=== PATIENT | female | born 1990 | race Caucasian/White ===

== ENCOUNTER 2016-06-11 14:05 | Emergency (ER) | payer BC ==
[2016-06-11 14:27] VITALS: BP 136/81
--- NOTE | 2016-06-11 15:06 | UC ---
Respiratory Complaint HPI - History of Current Complaint Chief Complaint: UCGeneralIllness Stated Complaint: SINUS PRESSURE Time Seen by Provider: 06/11/16 15:00 Hx Obtained From: Patient Hx Last Menstrual Period: 06/04/16 Onset/Duration: Sudden Onset, Lasting Days - 6, Still Present Severity Initially: Moderate Severity Currently: Moderate Character: Cough: Productive Aggravating Factors: Deep Breaths Alleviating Factors: OTC Meds Associated Signs And Symptoms: Positive: Wheezing, Nasal Congestion, Hoarseness , Sinus Discomfort Related History: Seasonal Allergies - Risk Factors Pulmonary Embolism Risk Factors: Oral Contraceptives Cardiac Risk Factors: Negative Pseudomonas Risk Factors: Negative - Allergies/Home Medications Allergies/Adverse Reactions: Allergies Allergy/AdvReac Type Severity Reaction Status Date / Time Erythromycin [From Pediazole] Allergy Unknown Verified 06/11/16 14:27 Reaction Details Sulfisoxazole Allergy Unknown Verified 06/11/16 14:27 [From Pediazole] Reaction Details Home Medications: Home Medications GuaiFENesin DM* [Robitussin DM*] 5 ml PO Q6H PRN 06/11/16 [History Confirmed 01/18] PMH/Surg Hx/FS Hx/Imm Hx Endocrine History Of: Denies: Diabetes, Thyroid Disease, Hyperthyroidism, Hypothyroidism, Dyslipidemia Cardiovascular History Of: Denies: Cardiac Disorders, Hypertension, Pacemaker/ICD, Myocardial Infarction , Congestive Heart Failure, Atrial Fibrillation, Deep Vein Thrombosis, Bleeding Disorders Respiratory History Of: Denies: COPD, Asthma, Bronchitis, Pneumonia, Pulmonary Embolism GI/ History Of: Denies: Gastroesophageal Reflux, Ulcer, Gastrointestinal Bleed, Gall Bladder Disease, Kidney Stones, Diverticulitis, Renal Disease, Urosepsis Neurological History Of: Denies: TIA, CVA, Dementia, Seizures, Migraine Psychological History Of: Denies: Anxiety, Depression, Bipolar Disorder, Schizophrenia, Post Traumatic Stress Disorder Cancer History Of: Denies: Lung Cancer, Colorectal Cancer, Breast Cancer, Prostate Cancer, Cervical Cancer Other History Of: Negative For: HIV, Hepatitis B, Hepatitis C - Surgical History Surgical History: Yes Surgery Procedure, Year, and Place: [place] Teeth, ~2010 - Family History Known Family History: Positive: Hypertension - Social History 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 Lives: With Family - with fiance Alcohol Use: Occasionally Substance Use Type: None Smoking Status (MU): Never Smoked Tobacco Have You Smoked in the Last Year: No Review of Systems Respiratory: Shortness Of Breath, Cough Neurological: Headache - frontal sinus headache All Other Systems Reviewed And Are Negative: Yes Physical Exam Triage Information Reviewed: Yes Appearance: No Pain Distress, Well-Nourished, Ill-Appearing Vital Signs: Initial Vital Signs Temp 99.4 F 06/11/16 14:23 Pulse 81 06/11/16 14:23 Resp 16 06/11/16 14:23 BP 136/81 06/11/16 14:23 Pulse Ox 100 06/11/16 14:23 Vital Signs Reviewed: Yes Eyes: Positive: Conjunctiva Clear ENT: Positive: Pharynx normal, Nasal congestion, TMs normal Neck exam: Normal Neck: Positive: No Lymphadenopathy Respiratory: Positive: Lungs clear, Wheezing - expiratory with coughing. Cardiovascular Exam: Normal Musculoskeletal Exam: Normal Neurological Exam: Normal Psychological Exam: Normal Skin Exam: Normal UC Diagnostic Evaluation - Laboratory O2 Sat by Pulse Oximetry: 100 Respiratory Course/Dx - Differential Dx/Diagnosis Differential Diagnosis/HQI/PQRI: Asthma, Lower Resp Infection, Sinusitis Provider Diagnoses: Acute URI. Acute sinusitis. Acute bronchospasm Discharge - Discharge Plan Condition: Stable Disposition: HOME Prescriptions: Amoxicillin (*) 875 mg PO BID #20 tab predniSONE TAB* [Deltasone TAB*] 20 mg PO DAILY #18 tab Patient Education Materials: Upper Respiratory Infection (ED), Sinusitis (ED), Amoxicillin (By mouth), Bronchospasm (ED), Prednisone (By mouth)
== END 2016-06-11 15:29 | disposition home or self-care (01) ==
LOC: UCCORT 14:05
DX: J06.9 Acute upper respiratory infection, unspecified (principal); J98.01 Acute bronchospasm; Z88.3 Allergy status to other anti-infective agents; Z88.8 Allergy status to other drugs, medicaments and biological substances
CPT/HCPCS: 99212; G0463

== ENCOUNTER 2018-03-03 13:26 | Emergency (ER) | payer BC ==
--- OUTSIDE RECORDS SUMMARY | 2018-03-03 13:47 | XMS REPORT ---
:1990 External Reference #:[id number] Author Organization [facility] Address [address], [address] [place] [address] Phone [phone] Care Team Providers Name Role Phone Cathy Dougherty M.D. Care Team Information Maintenance Chief Unavailable Cathy Dougherty M.D. Primary Care Physician Unavailable Payers Type Date Identification Numbers Payment Provider Subscriber Commercial Policy Number: [id number] Robert Zavala PayID: [id number] [address] [address] [place] [address] Problems Date Description Provider Status Onset: 07/11/2011 No current problems or disability Active Onset: 08/22/2017 Acute stress disorder Cathy Dougherty M.D. Active Onset: 08/22/2017 Viremia Cathy Dougherty M.D. Active Onset: 08/02/2017 Lipoma of skin Cathy Dougherty M.D. Active Onset: 08/02/2017 Onychomycosis Cathy Dougherty M.D. 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 Cigarette Use Never Smoked Cigarettes ETOH Use Rarely consumes alcohol Smoking Patient denies history of smoking Daily Caffeine Patient consumes minimal amounts of caffeine Allergies, Adverse Reactions, Alerts Date Description Reaction Status Severity Comments 06/07/2010 Pediazole as Child, Unsure Reaction active Medications Medication Date Status Form Strength Qnty SIG Indications Ordering Provider Sertraline HCL Active Tablets 50mg 30tabs 1 by F33.0 Gino Jon mouth Annette, every PNP-BC, day CARPET CLEANER, Ibclc Buspirone HCL Active Tablets 15mg 60tabs Take One F41.9 Gino Dougherty Tablet Cathy, By Mouth M.D. Twice A Day Ibuprofen Active Capsules 200mg tamikan Mady Dutton MD Sertraline HCL Hx Tablets 25mg 30tabs 1 by F33.0 Gino Dougherty - mouth Cathy, every M.D. 018 day Buspirone HCL Hx Tablets 7.5mg 60tabs 1 tab by F41.9 [place] 018 - mouth Cathy, twice a M.D. 018 day Venlafaxine Hx Caps ER 37.5mg 30caps 1 by F41.9 [place], HCL ER 018 - 24HR mouth Cathy, every M.D. 018 day Buspirone HCL Hx Tablets 7.5mg 60tabs 1 tab by F41.9 [place], 018 - mouth Cathy, twice a M.D. 018 day Trinessa (28) Hx Tablets 0.18/0.215 28tabs Take One Ladonna 018 - /0.25 Tablet Cathy, mg-35 mcg By Mouth M.D. 018 Every Day Terbinafine Hx Tablets 250mg 30tabs 1 by B35.1 [place], HCL 017 - mouth Cathy, every M.D. 018 day Tri-Sprintec Hx Tablets 0.18/0.215 28tabs 1 by Lad[place], 014 - /0.25 mouth Cathy, mg-35 mcg every M.D. 018 day Amoxicillin 00/00/0 Hx Tablets 875mg 1 tab by Unknown 000 - mouth twice a 015 day Immunizations CPT Code Status Date Vaccine Lot # [id number] Given 07/25/2010 Tdap injection 28828 Given 02/26/2008 Gardasil 27402 Given 10/09/2007 Gardasil 84903 Given 08/11/2007 Meningococcal Vaccine (Any Groups) For Subcutaneous Use 50864 Given 08/11/2007 Gardasil 40665 Given 12/07/1995 MMR Vaccine, Live, For Subcutaneous Use 65679 Given 05/24/1992 MMR Vaccine, Live, For Subcutaneous Use Vital Signs Date Vital Result Comment 02/07/2018 BP Systolic Sitting Left Arm 120 mmHg BP Diastolic Sitting Left Arm 74 mmHg Height 70.8 inches 5'10.80" Weight 178.38 lb BMI (Body Mass Index) 25.0 kg/m2 BSA (Body Surface Area) 2.00 m2 [place] body weight in kilograms 70 12/26/2017 BP Systolic Sitting Left Arm 120 mmHg BP Diastolic Sitting Left Arm 70 mmHg Body Temperature 98.7 F Heart Rate 74 /min Height 71 inches 5'11" Weight 183.38 lb BMI (Body Mass Index) 25.6 kg/m2 BSA (Body Surface Area) 2.03 m2 [place] body weight in kilograms 70 10/30/2017 BP Systolic Sitting Left Arm 120 mmHg BP Diastolic Sitting Left Arm 82 mmHg Heart Rate 96 /min Height 70 inches 5'10" Weight 184.25 lb BMI (Body Mass Index) 26.4 kg/m2 BSA (Body Surface Area) 2.02 m2 [place] body weight in kilograms 68 09/26/2017 BP Systolic Sitting Left Arm 118 mmHg BP Diastolic Sitting Left Arm 74 mmHg Heart Rate 84 /min Respiratory Rate 18 /min Height 70 inches 5'10" Weight 185.38 lb BMI (Body Mass Index) 26.6 kg/m2 BSA (Body Surface Area) 2.02 m2 [place] body weight in kilograms 68 08/22/2017 BP Systolic Sitting Left Arm 136 mmHg BP Diastolic Sitting Left Arm 80 mmHg Body Temperature 99.9 F Height 70 inches 5'10" Weight 185.50 lb BMI (Body Mass Index) 26.6 kg/m2 BSA (Body Surface Area) 2.02 m2 [place] body weight in kilograms 68 08/02/2017 BP Systolic Sitting Left Arm 106 mmHg BP Diastolic Sitting Left Arm 62 mmHg Height 70 inches 5'10" Weight 188.12 lb BMI (Body Mass Index) 27.0 kg/m2 BSA (Body Surface Area) 2.03 m2 [place] body weight in kilograms 68 06/01/2017 BP Systolic 114 mmHg BP Diastolic 72 mmHg Body Temperature 98.0 F Heart Rate 93 /min Height 69.5 inches 5'9.50" Weight 189.00 lb BMI (Body Mass Index) 27.5 kg/m2 BSA (Body Surface Area) 2.03 m2 [place] body weight in kilograms 67 O2 % BldC Oximetry 99 % 05/02/2017 BP Systolic Sitting Left Arm 124 mmHg BP Diastolic Sitting Left Arm 72 mmHg Height 69.5 inches 5'9.50" Weight 187.00 lb BMI (Body Mass Index) 27.2 kg/m2 BSA (Body Surface Area) 2.02 m2 [place] body weight in kilograms 67 Last Menstrual Period [id number] 08/10/2016 BP Systolic 112 mmHg BP Diastolic 70 mmHg Weight 183.00 lb 06/23/2014 BP Systolic 130 mmHg BP Diastolic 80 mmHg Heart Rate 76 /min Respiratory Rate 18 /min Height 69.5 inches Weight 153.00 lb BMI (Body Mass Index) 22.3 kg/m2 Results Test Date Test Result H/L Range Note Laboratory test finding 09/29/2017 CK 122 U/L 26-192 1 Troponin-I < 0.015 ng/mL 1, 2 Thyroid Stim Hormone 3.01 uIU/mL 0.30-4.20 1 HCG,Serum (Qualitative) NEGATIVE (Negative) 1, 3 CBS W/Automated Diff 09/29/2017 White Blood Count 9.9 K/uL 3.1-10.7 1 Red Blood Count 5.14 M/uL 3.90-5.40 1 Hemoglobin 15.3 gm/dL 11.6-15.8 1 Hematocrit 43.9 % 36.0-46.1 1 Mean Cell Volume 85.4 fl 80.9-99.0 1 Mean Corpuscular HGB 29.8 pg 25.9-32.7 1 Mean Corpuscular HGB Conc 34.9 g/dL High 30.8-34.3 1 Platelet Count 344 K/uL 155-360 1 Red Cell Distri Width SD 37.6 fl 3-47 1 Red Cell Distri Width %CV 12.3 % 11.7-14.4 1 Mean Platelet Volume 9.3 fL 8.9-12.4 1 Neut% 71.1 % 40.4-72.8 1 Lymph % 20.7 % 20.0-42.0 1 [place] % 7.8 % 4.3-13.2 1 Eo% 0.1 % 0.0-6.6 1 Bas% 0.3 % 0.0-1.1 1 Neut# 7.00 K/uL 1.8-7.0 1 Lymph # 2.04 K/uL 1.0-4.0 1 Hettinger # 0.77 K/uL 0.3-0.9 1 Eos # 0.01 K/uL 0.0-0.5 1 Baso # 0.03 K/uL 0.0-0.1 1 Comprehensive Metabolic Panel 09/29/2017 Glucose 96 mg/dL 74-106 1 BUN 9 mg/dL 7-18 1 Creatinine 1.0 mg/dL 0.6-1.3 1 Glom Filtration Rate, Estimate >60 mL/min >60 1 If >60 mL/min >60 1, 4 BUN/Creat 9.0 ratio 1 Sodium 138 mmol/L 136-145 1 Potassium 3.8 mmol/L 3.5-5.1 1 Chloride 104 mmol/L 98-107 1 Carbon Dioxide 25 mmol/L 21-32 1 Anion Gap 9 mEq/L 8-16 1 Calcium 9.3 mg/dL 8.5-10.1 1 Total Protein 8.4 g/dL High 6.4-8.2 1 Albumin 4.3 g/dL 3.4-5.0 1 Globulin 4.1 g/dL 1.9-4.3 1 Alb/Glob 1.0 ratio 1 Bilirubin,Total 0.4 mg/dL 0.2-1.0 1 Sgot/Ast 17 U/L 15-37 1 SGPT/Alt 30 U/L 12-78 1 Alkaline Phosphatase 79 U/L 45-117 1 Drugs Of Abuse-Urine Screen 7 09/29/2017 Amphetamines (Urine) Negative 1 Barbiturates (Urine) Negative 1 Benzodiazepines (Urine) Negative 1 Cannabinoids (Urine) Negative 1 Cocaine Metabolite (Urine) Negative 1 Methadone (Urine) Negative 1 Opiates (Urine) Negative 1 Urine Cutoffs * 1, 5 Basic Metabolic Panel 06/09/2017 Glucose 84 mg/dL 74-106 6 BUN 13 mg/dL 7-18 6 Creatinine 0.9 mg/dL 0.6-1.3 6 Glom Filtration Rate, Estimate >60 mL/min >60 6 If >60 mL/min >60 6, 7 BUN/Creat 14.4 ratio 6 Sodium 139 mmol/L 136-145 6 Potassium 3.9 mmol/L 3.5-5.1 6 Chloride 104 mmol/L 98-107 6 Carbon Dioxide 28 mmol/L 21-32 6 Anion Gap 7 mEq/L Low 8-16 6 Calcium 9.0 mg/dL 8.5-10.1 6 Laboratory test finding 06/09/2017 Insulin Antibodies < 5.0 uU/mL . 6, 8 Insulin 8.1 uIU/mL 2.6-24.9 6 Beta Hydroxybutyrate 0.9 mg/dL . 6, 9 Laboratory test finding 06/09/2017 C-Peptide 1.7 ng/mL 1.1-4.4 6, 10 Proinsulin 06/09/2017 Proinsulin 1.9 pmol/L 0.0-10.0 6, 11 Basic Metabolic Panel 06/01/2017 Glucose 81 mg/dL 74-106 12 BUN 13 mg/dL 7-18 12 Creatinine 0.9 mg/dL 0.6-1.3 12 Glom Filtration Rate, Estimate >60 mL/min >60 12 If >60 mL/min >60 12, 13 BUN/Creat 14.4 ratio 12 Sodium 140 mmol/L 136-145 12 Potassium 3.4 mmol/L Low 3.5-5.1 12 Chloride 107 mmol/L 98-107 12 Carbon Dioxide 28 mmol/L 21-32 12 Anion Gap 5 mEq/L Low 8-16 12 Calcium 9.1 mg/dL 8.5-10.1 12 Reflex add FT3? Y 12 Reflex add FT4? Y 12 Laboratory test finding 06/01/2017 C-Peptide 6.4 ng/mL High 1.1-4.4 12, 14 Insulin 36.7 uIU/mL High 2.6-24.9 12, 15 TSH Reflex FT4 And/Or FT3 06/01/2017 Thyroid Stim Hormone 2.32 uIU/mL 0.30-4.20 12 Reflex add FT3? Y 12 Reflex add FT4? Y 12 Proinsulin 06/01/2017 Proinsulin 6.7 pmol/L 0.0-10.0 12 Affirm Vaginitis Panel 05/02/2017 Trichomonas vaginalis Negative [ Negative] 16 Gardnerella vaginalis Negative [Negative] 16 Corinna species Negative [Negative] 16, 17 CBS W/Automated Diff 05/02/2017 White Blood Count 7.6 K/uL 3.1-10.7 16 Red Blood Count 4.41 M/uL 3.90-5.40 16 Hemoglobin 13.3 gm/dL 11.6-15.8 16 Hematocrit 38.8 % 36.0-46.1 16 Mean Cell Volume 88.0 fl 80.9-99.0 16 Mean Corpuscular HGB 30.2 pg 25.9-32.7 16 Mean Corpuscular HGB Conc 34.3 g/dL 30.8-34.3 16 Platelet Count 301 K/uL 150-400 16 Red Cell Distri Width SD 39.4 fl 3-47 16 Red Cell Distri Width %CV 12.6 % 11.7-14.4 16 Mean Platelet Volume 10.4 fL 8.9-12.4 16 Neut% 44.2 % 40.4-72.8 16 Lymph % 41.6 % 20.0-42.0 16 Hettinger % 11.3 % 4.3-13.2 16 Eo% 2.5 % 0.0-6.6 16 Bas% 0.4 % 0.0-1.1 16 Neut# 3.35 K/uL 1.8-7.0 16 Lymph # 3.16 K/uL 1.0-4.0 16 Hettinger # 0.86 K/uL 0.3-0.9 16 Eos # 0.19 K/uL 0.0-0.5 16 Baso # 0.03 K/uL 0.0-0.1 16 HPV High Risk 05/02/2017 HPV High Risk Results on file 18 Comprehensive Metabolic 05/02/2017 Glucose 68 mg/dL Low 74-106 16 Panel BUN 13 mg/dL 7-18 16 Creatinine 0.8 mg/dL 0.6-1.3 16 Glom Filtration Rate, Estimate >60 mL/min >60 16 If >60 mL/min >60 16, 19 BUN/Creat 16.2 ratio 16 Sodium 139 mmol/L 136-145 16 Potassium 4.0 mmol/L 3.5-5.1 16 Chloride 105 mmol/L 98-107 16 Carbon Dioxide 28 mmol/L 21-32 16 Anion Gap 6 mEq/L Low 8-16 16 Calcium 9.1 mg/dL 8.5-10.1 16 Total Protein 7.5 g/dL 6.4-8.2 16 Albumin 3.5 g/dL 3.4-5.0 16 Globulin 4.0 g/dL 1.9-4.3 16 Alb/Glob 0.9 ratio 16 Bilirubin,Total 0.1 mg/dL Low 0.2-1.0 16 Sgot/Ast 18 U/L 15-37 16 SGPT/Alt 21 U/L 12-78 16 Alkaline Phosphatase 55 U/L 45-117 16 CBC W/Automated Diff 07/20/2015 White Blood Count 5.5 K/uL 3.1-10.7 Red Blood Count 4.49 M/uL 3.90-5.40 Hemoglobin 13.4 gm/dL 11.6-15.8 Hematocrit 39.5 % 36.0-46.1 Mean Cell Volume 88.0 fl 80.9-99.0 Mean Corpuscular HGB 29.8 pg 25.9-32.7 Mean Corpuscular HGB Conc 33.9 g/dL 30.8-34.3 Platelet Count 300 K/uL 155-360 Red Cell Distri Width SD 38.7 fl 3-47 Red Cell Distri Width %CV 12.4 % 11.7-14.4 Mean Platelet Volume 10.5 fL 8.9-12.4 Neut% 51.2 % 40.4-72.8 Lymph % 35.0 % 17.0-46.1 Hettinger % 11.9 % 4.3-13.2 Eo% 1.5 % 0.0-6.6 Bas% 0.4 % 0.0-1.1 Neut# 2.81 K/uL 1.8-7.0 Lymph # 1.92 K/uL 1.8-7.0 Hettinger # 0.65 K/uL 0.3-0.9 Eos # 0.08 K/uL 0.0-0.5 Baso # 0.02 K/uL 0.0-0.1 Xray 02/04/2015 Ultrasound, Extremity Non no bx rec'd Vascular Complete Laboratory test finding 12/17/2013 GC / Chlamydia neg neg Laboratory test finding 10/30/2012 Cytology Pap ok GC / Chlamydia neg neg 1 REACTION TO NEW MED 2 0.0 - 0.045 ng/mL: Normal 0.046 - 0.5 ng/mL: Suggestive 0.6 - 1.5 ng/mL: Consistent 3 Method: Care Team [employer] One-Step Immunoassay 4 Note: Persistent reduction for 3 months or more in an eGFR <60 mL/min/1.73 m2 defines CKD. Patients with eGFR values >/=60 mL/min/1.73 m2 may also have CKD if evidence of persistent proteinuria is present. The original MDRD equation for estimated GFR is not valid for patients less than 18 years of age. Additional information may be found at www.kdoqi.org. 5 URINE SPECIMENS ARE SCREENED AT THE LISTED CUTOFFS DRUG CLASS INITIAL TEST LEVEL Amphetamines 1000 ng/mL Barbiturates 200 ng/mL Benzodiazepines 200 ng/mL Cannabinoids 50 ng/mL Cocaine Metabolite 300 ng/mL Methadone 300 ng/mL Opiates 300 ng/mL Any PRESUMPTIVE POSITIVE findings are UNCONFIRMED. Confirmatory testing is suggested if findings are unexpected. Please contact laboratory if confirmatory testing is desired. SPECIMENS ARE HELD FOR 72 HOURS. 6 NO ORDER 7 Note: Persistent reduction for 3 months or more in an eGFR <60 mL/min/1.73 m2 defines CKD. Patients with eGFR values >/=60 mL/min/1.73 m2 may also have CKD if evidence of persistent proteinuria is present. The original MDRD equation for estimated GFR is not valid for patients less than 18 years of age. Additional information may be found at www.kdoqi.org. 8 This test is also known as insulin autoantibody or IAA. Reference Range: <5.0 Negative > or=5.0 Positive Performed at: [facility] [address] [place] [id number] Care Tech: Long Hinson MD, Phone: [phone] Reference Range: All Ages (fasting): 0.2 - 2.8 10 C-Peptide reference interval is for fasting patients. 11 Performed at: [facility] [address] [place] [id number] Care Tech: Long Hinson MD, Phone: [phone] Performed at: - [facility] [id number] Care Tech: Lucia Lockett MD, Phone: [phone] Performed at: [facility] [id number] Care Tech: Hitesh Herrera MD, Phone: [phone] 12 E16.2 13 Note: Persistent reduction for 3 months or more in an eGFR <60 mL/min/1.73 m2 defines CKD. Patients with eGFR values >/=60 mL/min/1.73 m2 may also have CKD if evidence of persistent proteinuria is present. The original MDRD equation for estimated GFR is not valid for patients less than 18 years of age. Additional information may be found at www.kdoqi.org. 14 C-Peptide reference interval is for fasting patients. 15 Performed at: [facility] [id number] Care Tech: Lucia Lockett MD, Phone: [phone] Performed at: [facility] [employer] [id number] Care Tech: Hitesh Herrera MD, Phone: [phone] 16 B35.1 N89.8 17 Method: BD Affirm VPIII DNA Probe Assay 18 Hard copy of report to be sent by mail Report may be viewed in Clinical Review, or in PCI under Medical Record Forms 19 Note: Persistent reduction for 3 months or more in an eGFR <60 mL/min/1.73 m2 defines CKD. Patients with eGFR values >/=60 mL/min/1.73 m2 may also have CKD if evidence of persistent proteinuria is present. The original MDRD equation for estimated GFR is not valid for patients less than 18 years of age. Additional information may be found at www.kdoqi.org. Procedures Date CPT Code Description Status 02/07/2018 38733 Brief Emotional/Behav Assessment W/ Scoring Doc Per Completed Standard Inst Encounters Type Date Location Provider CPT E/M Dx Office Visit 02/07/2018 4:00p Family Medicine Annette Jon, PNP-BC, 23489 F41.9 CARPET CLEANER, Ibclc F33.0 Office Visit 12/26/2017 11:30a Family Medicine Ctahy Dougherty M.D. 74875 F41.9 F33.0 Office Visit 10/30/2017 4:15p Family Medicine Cathy Dougherty M.D. 01979 F41.9 F33.0 Office Visit 09/26/2017 8:45a [facility] Cathy Dougherty M.D. 81081 F41.9 Office Visit 08/22/2017 1:30p [facility] Cathy Dougherty M.D. 32031 B34.9 F43.0 Office Visit 08/02/2017 3:45p [facility] Cathy Dougherty M.D. 87314 B35.1 D17.21 Office Visit 06/01/2017 9:45a [facility] Cathy Dougherty M.D. 42759 B35.1 E16.2 R59.0 Office Visit 05/02/2017 3:15p [facility] Cathy Dougherty M.D. 83921 Z00.00 Z12.4 N89.8 B35.1 R22.31 Office Visit 08/10/2016 10:15a [facility] Cathy Dougherty M.D. 60413 R59.0 Office Visit 05/31/2015 1:15p [place] [address] R59.0 Office Visit 02/04/2015 11:00a Surgical Office Robert Cool 27859 785.6 M.DDb Office Visit 11/23/2014 3:45p [place] [address] 785.6 Office Visit 07/29/2014 3:30p [place] [address] 785.6 Plan of Care Future Appointment(s):03/12/2018 4:45 pm - Annette Jon, PNP-BC, CARPET CLE[employer]ER, Ibclc at [facility]
[2018-03-03 14:34] VITALS: BP 99/72
--- NOTE | 2018-03-03 15:33 | UC ---
Respiratory Complaint HPI - HPI Summary HPI Summary: Pt presents with c/o nasal congestion and chest tightness, fatigue, body aches, chills X 3 days. 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 - History of Current Complaint Chief Complaint: UCRespiratory Stated Complaint: CHEST CONGESTION,HEADACHE,CHILLS,FEVER Time Seen by Provider: 03/03/18 15:24 Hx Obtained From: Patient Hx Last Menstrual Period: 02/26/18 ?: No Onset/Duration: Gradual Onset, Lasting Days, Worse Since - onset Timing: Constant Severity Initially: Mild Severity Currently: Mild Pain Intensity: 2 Character: Cough: Nonproductive Aggravating Factors: Exertion, Deep Breaths Associated Signs And Symptoms: Positive: URI, Nasal Congestion - Risk Factors Pulmonary Embolism Risk Factors: Negative Cardiac Risk Factors: Negative Pseudomonas Risk Factors: Negative Tuberculosis Risk Factors: Negative - Allergies/Home Medications Allergies/Adverse Reactions: Allergies Allergy/AdvReac Type Severity Reaction Status Date / Time erythromycin base Allergy Unknown Verified 03/03/18 14:27 [From Pediazole] Reaction Details sulfisoxazole Allergy Unknown Verified 03/03/18 14:27 [From Pediazole] Reaction Details Home Medications: Home Medications Sertraline* [Zoloft*] 50 mg PO DAILY 03/03/18 [History Confirmed 03/03/18] PMH/Surg Hx/FS Hx/Imm Hx Previously Healthy: Yes Psychological History: Depression Other History Of: Negative For: HIV, Hepatitis B, Hepatitis C - Surgical History Surgical History: Yes Surgery Procedure, Year, and Place: [place] Teeth, ~2010 - Family History Known Family History: Positive: Hypertension - Social History Occupation: Employed Full-time Lives: With Family Alcohol Use: Occasionally Substance Use Type: None Smoking Status (MU): Never Smoked Tobacco Have You Smoked in the Last Year: No Review of Systems Constitutional: Chills, Fatigue Skin: Negative Eyes: Negative ENT: Sinus Congestion Respiratory: Cough Cardiovascular: Negative Gastrointestinal: Negative Genitourinary: Negative Motor: Negative Neurovascular: Negative Musculoskeletal: Myalgia Neurological: Negative Psychological: Negative Is Patient Immunocompromised?: No All Other Systems Reviewed And Are Negative: Yes Physical Exam Triage Information Reviewed: Yes Appearance: Well-Appearing Vital Signs: Initial Vital Signs Temp 99.2 F 03/03/18 14:28 Pulse 93 03/03/18 14:28 Resp 15 03/03/18 14:28 BP 99/72 03/03/18 14:28 Pulse Ox 100 03/03/18 14:28 Vital Signs Reviewed: Yes Eye Exam: Normal ENT Exam: Other ENT: Positive: Nasal congestion Dental Exam: Normal Neck exam: Normal Respiratory Exam: Normal Cardiovascular Exam: Normal Musculoskeletal Exam: Normal Neurological Exam: Normal Psychological Exam: Normal Skin Exam: Normal UC Diagnostic Evaluation - Laboratory O2 Sat by Pulse Oximetry: 100 Respiratory Course/Dx - Differential Dx/Diagnosis Differential Diagnosis/HQI/PQRI: Bronchitis, Influenza Provider Diagnoses: URI Discharge - Sign-Out/Discharge Documenting (check all that apply): Patient Departure All imaging exams completed and their final reports reviewed: No Studies - Discharge Plan Condition: Stable Disposition: HOME Prescriptions: Albuterol HFA INHALER* [Ventolin HFA Inhaler*] 1 puff INH Q6H PRN #1 mdi PRN Reason: Sob/Wheezing Guaifenesin/Pseudoephedrne HCl [Mucinex D ER 600-60 mg Tablet] 1 each PO Q12H PRN #14 tab.er.12h PRN Reason: Congestion predniSONE TAB* [Deltasone 20 MG TAB*] 20 mg PO DAILY #4 tab Patient Education Materials: Upper Respiratory Infection (DC) Referrals: Annette Jon NP [Primary Care Provider] - If Needed - Billing Disposition and Condition Condition: STABLE Disposition: Home
== END 2018-03-03 15:45 | disposition home or self-care (01) ==
LOC: UCCORT 13:26
DX: J06.9 Acute upper respiratory infection, unspecified (principal); Z88.1 Allergy status to other antibiotic agents; F32.9 Major depressive disorder, single episode, unspecified
CPT/HCPCS: 99212; G0463